=== PATIENT | male | born 2000 | race Caucasian/White ===

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

== ENCOUNTER 2022-05-04 21:20 | Emergency (ER) | payer OTHER ==
[2022-05-04 21:32] VITALS: BP 126/79; PULSE 99; TEMP 98; BMI 36.5
[2022-05-04] MEDS ORDERED: ONDANSETRON 4 MG/2 ML VIAL IVPUSH ONE (21:59)
[2022-05-04] MEDS ORDERED: SODIUM CHLORIDE 0.9% 1000 ML INFUS.BAG IV ONE ×2 (21:59→22:20)
[2022-05-04] MEDS ORDERED: ACETAMINOPHEN 1000 MG/100 ML BAG IVPB ONE (21:59)
[2022-05-04] MEDS ORDERED: morphine CARPU-JECT 4 MG/1 ML DISP.SYRIN IVPUSH ONE (21:59)
[2022-05-04] MEDS ORDERED: morphine SULFATE 4 MG/ML VIAL ONE (22:04)
[2022-05-04] MEDS ORDERED: ONDANSETRON 4 MG/2 ML VIAL ONE (22:04)
[2022-05-04] MEDS ORDERED: ACETAMINOPHEN INJECTION 100 ML IVPB ONE (22:04)
[2022-05-04 22:18] LABS: BASO % 0.9 % (0-2.0); EOS % 1.8 % (0-4.5); HEMATOCRIT 43.1 % (35.4-49); HEMOGLOBIN 14.5 GM/dL (11.7-16.9); LYMPH % 25.9 % (8-40); MCHC 33.7 g/dl (32.0-35.9); MEAN CELL VOLUME 82.9 fl (80-96); MEAN PLT VOLUME 8.7 fl (7.5-11.1); MONO % 8.9 % (3.8-10.2); NEUT % 62.5 % (42.8-82.8); PLATELET COUNT 265 10^3/uL (134-434); RBC 5.19 M/mm3 (4.00-5.60); RDW 13.7 % (11.9-15.9); WHITE BLOOD COUNT 9.8 K/mm3 (4.0-10.0)
[2022-05-04 22:25] LABS: INR 1.04 (0.83-1.09)
[2022-05-04 22:28] LABS: ACTIVATED PTT 29.2 SECONDS (25.2-36.5)
[2022-05-04 22:40] LABS: CALCIUM 8.9 mg/dL (8.5-10.1)
[2022-05-04 22:41] LABS: ALBUMIN 3.9 g/dl (3.4-5.0); BLOOD UREA NITROGEN 10.9 mg/dL (7-18)
[2022-05-04 22:44] LABS: CREATININE 1.1 mg/dL (0.55-1.3)
[2022-05-04 22:45] LABS: BILIRUBIN,TOTAL 0.4 mg/dL (0.2-1)
[2022-05-04 22:46] LABS: TOT PROT 7.8 g/dl (6.4-8.2)
[2022-05-04 23:13] LABS: URINE APPEARANCE CLOUDY; URINE BILIRUBIN NEGATIVE (NEGATIVE); URINE COLOR YELLOW; URINE GLUCOSE (UA) NEGATIVE (NEGATIVE); URINE KETONE NEGATIVE (NEGATIVE); URINE LEUK ESTERASE NEGATIVE (NEGATIVE); URINE NITRITE NEGATIVE (NEGATIVE); URINE PROTEIN NEGATIVE (NEGATIVE); URINE UROBILINOGEN 0.2 mg/dL (0.2-1.0)
[2022-05-04] MEDS ORDERED: KETOROLAC TROMETHAMINE 15 MG/ML VIAL IVPUSH ONE (23:25)
[2022-05-04] MEDS ORDERED: KETOROLAC TROMETHAMINE 15 MG/ML VIAL ONE (23:38)
== END 2022-05-04 23:47 | disposition home or self-care (01) ==
LOC: JER 21:20
PROC: 3E0333Z Introduction of Anti-inflammatory into Peripheral Vein, Percutaneous Approach (ICD-10-PCS; principal; 2022-05-04)
PROC: 3E0333Z Introduction of Anti-inflammatory into Peripheral Vein, Percutaneous Approach (ICD-10-PCS; 2022-05-04)
PROC: 3E033NZ Introduction of Analgesics, Hypnotics, Sedatives into Peripheral Vein, Percutaneous Approach (ICD-10-PCS; 2022-05-04)
PROC: 3E033GC Introduction of Other Therapeutic Substance into Peripheral Vein, Percutaneous Approach (ICD-10-PCS; 2022-05-04)
DX: N20.0 Calculus of kidney (principal)
CPT/HCPCS: 36415; 74176-TC; 80053; 81003; 85025; 85610; 85730; 86850; 86900; 86901; 87086; 99284-25

== ENCOUNTER 2022-09-29 20:37 | Emergency (ER) | payer OTHER ==
[2022-09-29 20:43] VITALS: BP 170/88; PULSE 89; RESP 18; TEMP 98.1; BMI 34.9
[2022-09-29 22:36] LABS: HEMATOCRIT 43.9 % (35.4-49); HEMOGLOBIN 14.8 GM/dL (11.7-16.9); MCH 28.5 pg (25.7-33.7); MCHC 33.8 g/dl (32.0-35.9); MEAN CELL VOLUME 84.4 fl (80-96); MEAN PLT VOLUME 8.1 fl (7.5-11.1); PLATELET COUNT 275 10^3/uL (134-434); RDW 13.7 % (11.9-15.9); WHITE BLOOD COUNT 9.2 K/mm3 (4.0-10.0)
[2022-09-29 22:52] LABS: CALCIUM 9.2 mg/dL (8.5-10.1)
[2022-09-29 22:53] LABS: ALBUMIN 3.8 g/dl (3.4-5.0); BLOOD UREA NITROGEN 15.7 mg/dL (7-18)
[2022-09-29 22:56] LABS: CREATININE 0.9 mg/dL (0.55-1.3)
[2022-09-29 22:58] LABS: BILIRUBIN,TOTAL 0.2 mg/dL (0.2-1)
== END 2022-09-30 00:39 | disposition home or self-care (01) ==
LOC: JER 20:37
DX: K62.5 Hemorrhage of anus and rectum (principal)
CPT/HCPCS: 0241U-QW; 36415; 80053; 82272; 85027; 86850; 86900; 86901; 87651; 99283-25

== ENCOUNTER 2024-05-12 11:50 | Emergency (ER) | payer OTHER ==
[2024-05-12 11:57] VITALS: BP 116/68; PULSE 65; RESP 19; TEMP 97.8; BMI 37.4
[2024-05-12] MEDS: SODIUM CHLORIDE 1,000 ML IV STA (12:53)
[2024-05-12 13:11] LABS: EOS % 1.5 % (0-4.5); HEMATOCRIT 45.7 % (35.4-49); HEMOGLOBIN 15.1 GM/dL (11.7-16.9); INR 0.97 (0.83-1.09); MCH 28.1 pg (25.7-33.7); MCHC 33.1 g/dl (32.0-35.9); MEAN PLT VOLUME 8.5 fl (7.5-11.1); MONO % 8.9 % (3.8-10.2); NEUT % 62.6 % (42.8-82.8); PLATELET COUNT 264 10^3/uL (134-434); PROTHROMBIN TIME (PATIENT) 11.2 SEC (9.7-13.0); RBC 5.37 M/mm3 (4.00-5.60); RDW 13.7 % (11.9-15.9); WHITE BLOOD COUNT 7.4 K/mm3 (4.0-10.0)
[2024-05-12 13:14] LABS: ACTIVATED PTT 35.7 SECONDS (25.2-36.5)
[2024-05-12 13:20] LABS: POTASSIUM 4.5 mmol/L (3.5-5.1)
[2024-05-12 13:23] LABS: CALCIUM 9.1 mg/dL (8.5-10.1)
[2024-05-12 13:24] LABS: ALBUMIN 3.9 g/dl (3.4-5.0); BLOOD UREA NITROGEN 7.3 mg/dL (7-18)
[2024-05-12 13:27] LABS: CREATININE 0.8 mg/dL (0.55-1.3)
[2024-05-12 13:30] LABS: BILIRUBIN,TOTAL 0.4 mg/dL (0.2-1)
[2024-05-12 13:36] LABS: PH,URINE 6.5 (5.0-8.0); URINE APPEARANCE CLEAR; URINE BILIRUBIN NEGATIVE (NEGATIVE); URINE COLOR YELLOW; URINE GLUCOSE (UA) NEGATIVE (NEGATIVE); URINE KETONE NEGATIVE (NEGATIVE); URINE LEUK ESTERASE NEGATIVE (NEGATIVE); URINE NITRITE NEGATIVE (NEGATIVE); URINE PROTEIN NEGATIVE (NEGATIVE)
== END 2024-05-12 14:15 | disposition home or self-care (01) ==
LOC: JER 11:50
PROC: 3E0337Z Introduction of Electrolytic and Water Balance Substance into Peripheral Vein, Percutaneous Approach (ICD-10-PCS; principal; 2024-05-12)
DX: R42 Dizziness and giddiness (principal); R11.0 Nausea
CPT/HCPCS: 36415; 70450-TC; 80053; 81003; 84484; 85025; 85610; 85730; 93005; 93010; 99285-25